=== PATIENT | female | born 1955 | race Caucasian/White ===

== ENCOUNTER 2019-10-12 15:46 | Emergency (ER) | payer MEDICAID ==
[2019-10-12] MEDS ORDERED: Adenosine 6 MG/2 ML SDV IVPUSH ONE (15:53)
[2019-10-12] MEDS ORDERED: Propofol 200 MG/20 ML SDV IVPUSH ONE (16:03)
--- NOTE | 2019-10-12 16:23 | EDM.PDOC ---
ED HPI GENERAL MEDICAL PROBLEM - General Chief Complaint: Cardiovascular Problem Stated Complaint: A-FIB Time Seen by Provider: 10/12/19 16:00 Source of Information: Reports: Patient, Family History Limitations: Reports: No Limitations - History of Present Illness INITIAL COMMENTS - FREE TEXT/NARRATIVE: 64-year-old female with a long history of recurring atrial fibrillation, SVT, and supraventricular arrhythmias who was undergone ablation twice, several medication trials including amiodarone, and currently she is only on one extended release metoprolol. She has an appointment coming up with her hadoop infrastructure architect next week because she has been having some breakthrough arrhythmias. No chest pain or significant shortness of breath, no illness or fevers. About 1 hour ago she started developing palpitations, her pulse was 150 to 160 and when it became close to 200 and she had slight chest pressure she thought she better come in. On arrival she was in a narrow complex tachyarrhythmia with a rate over 200. She was hypertensive with systolic near 220. O2 saturations were normal. She was very anxious, tearful Onset: Sudden Duration: Hour(s): (2 hours ago) Location: Reports: Chest (Slight chest pressure) Chest Pain Score (Numeric/FACES): 8 - Related Data Allergies Allergy/AdvReac Type Severity Reaction Status Date / Time No Known Allergies Allergy Verified 10/12/19 15:53 Home Meds: Home Meds Lisinopril 20 mg PO DAILY 05/21/16 [History] atorvaSTATin [Lipitor] 20 mg PO DAILY 05/21/16 [History] Cholecalciferol (Vitamin D3) [Vitamin D3] 5,000 unit PO DAILY 06/24/16 [History] Albuterol Sulfate [Proair Hfa] 1 puff INH ASDIRECTED 10/12/19 [History] Apixaban [Eliquis] 5 mg PO BID 10/12/19 [History] Furosemide 20 mg PO DAILY 10/12/19 [History] Melatonin 1 tab PO DAILY 10/12/19 [History] Metoprolol Succinate 50 mg PO DAILY 10/12/19 [History] Past Medical History Cardiovascular History: Reports: Afib, High Cholesterol, Hypertension Other Immunologic History: Lymes disease - Infectious Disease History Infectious Disease History: Reports: Chicken Pox, Measles - Past Surgical History GI Surgical History: Reports: Appendectomy Female Surgical History: Reports: Section, Tubal Ligation Social & Family History - Caffeine Use Caffeine Use: Reports: Soda ED ROS GENERAL - Review of Systems Review Of Systems: See Below Constitutional: Reports: Malaise. Denies: Fever, Chills HEENT: Reports: No Symptoms Respiratory: Reports: Shortness of Breath. Denies: Cough Cardiovascular: Reports: Chest Pain, Palpitations (Slight pressure) GI/Abdominal: Denies: Abdominal Pain, Nausea, Vomiting Skin: Reports: Diaphoresis Neurological: Reports: No Symptoms Psychiatric: Reports: Anxiety ED EXAM, GENERAL - Physical Exam Exam: See Below Exam Limited By: No Limitations General Appearance: Alert, Anxious, Mild Distress Respiratory/Chest: No Respiratory Distress, Lungs Clear Cardiovascular: Regular Rate, Rhythm, Tachycardia (Extreme tachycardia) GI/Abdominal: Non-Tender Extremities: No: Pedal Edema Neurological: Alert, Oriented Psychiatric: Anxious Skin Exam: Warm, Dry EKG INTERPRETATION EKG Date: 10/12/19 Rhythm: A-Fib Rate (Beats/Min): 196 QRS: Normal EKG Interpretation Comments: Initial EKG showed extreme narrow complex tachycardia, very regular with occasional PVCs. Either supraventricular tachycardia or very rapid and regular atrial fibrillation. Course - Vital Signs Last Recorded V/S: Last Vital Signs Temp 97.5 F 10/12/19 16:16 Pulse 123 H 10/12/19 16:38 Resp 31 H 10/12/19 16:16 BP 118/49 L 10/12/19 16:38 Pulse Ox 97 10/12/19 16:16 - Orders/Labs/Meds Labs: Laboratory Tests 10/12/19 10/12/19 Range/Units 16:16 16:16 WBC 9.4 (4.5-11.0) K/uL RBC 5.05 (3.30-5.50) M/uL Hgb 14.3 (12.0-15.0) g/dL Hct 44.5 (36.0-48.0) % MCV 88 (80-98) fL MCH 28 (27-31) pg MCHC 32 (32-36) % Plt Count 352 (150-400) K/uL Neut % (Auto) 52 (36-66) % Lymph % (Auto) 26 (24-44) % Kane % (Auto) 12 H (2-6) % Eos % (Auto) 9 H (2-4) % Baso % (Auto) 0 (0-1) % Sodium 136 L (140-148) mmol/L Potassium 4.0 (3.6-5.2) mmol/L Chloride 100 (100-108) mmol/L Carbon Dioxide 26 (21-32) mmol/L Anion Gap 14.0 (5.0-14.0) mmol/L BUN 16 (7-18) mg/dL Creatinine 0.9 (0.6-1.0) mg/dL Est Cr Clr Drug Dosing 59.12 mL/min Estimated GFR (MDRD) > 60 (>60) Glucose 136 H (74-106) mg/dL Calcium 9.6 (8.5-10.1) mg/dL Troponin I < 0.017 (0.000-0.056) ng/mL Meds: Medications Discontinued Medications Generic Name Dose Route Start Last Admin Trade Name Freq PRN Reason Stop Dose Admin Adenosine 6 mg 10/12/19 15:53 10/12/19 16:24 Adenocard IVPUSH 10/12/19 15:54 Not Given NOW ONE Metoprolol Tartrate 50 mg 10/12/19 16:32 10/12/19 16:38 Lopressor PO 10/12/19 16:33 50 mg ONETIME ONE Administration Propofol 120 mg 10/12/19 16:03 10/12/19 16:07 Diprivan 20 Ml IVPUSH 10/12/19 16:04 100 mg ONETIME ONE Administration - Re-Assessments/Exams Free Text/Narrative Re-Assessment/Exam: 10/12/19 16:30 An IV was started, IV adenosine or cardizem was considered but the patient has not eaten in 6 hours and she has not responded well in the past to medical treatments so she was prepared for cardioversion. After consent, 200 J of synchronized cardioversion was applied after 100 mg of IV propofol and proper sedation. She responded well and converted to a sinus tachycardia with occasional PVCs. Within 20 minutes she was awake, symptoms had resolved, her rate had fallen to 105 to 110 and her blood pressure normalized. A repeat EKG confirms sinus rhythm. 10/12/19 16:47 Patient was observed for an additional 30 minutes and remained in a sinus rhythm. Symptoms had resolved. I am encouraging her to take her metoprolol twice daily through the and recheck with cardiology on Tuesday as scheduled. Departure - Departure Time of Disposition: 17:10 Disposition: Home, Self-Care 01 Clinical Impression: Narrow complex tachycardia Instructions: Supraventricular Tachycardia, Adult, [id number] Referrals: Marleny Arias PA [Primary Care Provider] - Forms: ED Department Discharge Care Plan Goals: Take metoprolol twice daily through the weekend, and increase activity as tolerated. Return anytime if symptoms recur and are persistent. Recheck with your [employer]oop infrastructure architect on Tuesday as scheduled. Sepsis Event Note - Focused Exam Date Exam was Performed: 10/15/19 Time Exam was Performed: 10:42
[2019-10-12] MEDS ORDERED: Metoprolol Tartrate 50 MG Tab PO ONE (16:32)
[2019-10-12 16:39] VITALS: BP 118/49; PULSE 123
--- NOTE | 2019-10-12 16:57 | PCM.PRNOTE ---
- Free Text/Narrative Note: Date of service: 10/12/2019 Proposed procedure: Synchronized cardioversion Preprocedure diagnosis: Paroxysmal atrial fibrillation/flutter with rapid ventricular response Post procedure diagnosis: Paroxysmal atrial fibrillation/flutter with rapid ventricular response Indication for procedure: Adeola was evaluated today for management atrial fibrillation/flutter with symptoms and rapid ventricular response. Synchronized cardioversion was recommended as a primary treatment. Description of the procedure: Adeola is currently located [place] [id number]. We have reviewed the potential risks of electrical cardioversion including but not limited to: Superficial skin deal, ineffective treatment, other arrhythmias, reaction to anesthesia medications or potentially asystole. The benefits of the procedure have also been reviewed. At this time the patient wishes to proceed with electrical cardioversion. All necessary pre-procedure information and paperwork has been provided and completed, respectively. The patient was connected to cardioversion pads and monitoring equipment per protocol. Prior to the procedure, a timeout was held with nursing and anesthesia present to confirm the right patient and right procedure. Once appropriate anesthesia was applied the machine was charged to 200 Joules and a synchronized electrical shock was applied. The patient was successfully converted to normal sinus rhythm based on telemetry monitoring. They will remain in their current location until anesthesia has dissipated and the patient is more awake and alert. They will then be discharged to home once medically stable. There were no immediate complications noted from the procedure. Post procedure EKG is pending at the time of dictation. Polo Klein M.D.
== END 2019-10-12 17:10 | disposition home or self-care (01) ==
LOC: JP.ED 15:46
DX: R00.0 Tachycardia, unspecified (principal); I10 Essential (primary) hypertension; Z90.49 Acquired absence of other specified parts of digestive tract; Z79.899 Other long term (current) drug therapy
CPT/HCPCS: 36415; 80048; 84484; 85025; 92960; 93005; 99285; A9270; J2704

== ENCOUNTER 2019-10-26 21:03 | Emergency (ER) | payer MEDICAID ==
[2019-10-26] MEDS ORDERED: Diltiazem 25 MG/5 ML SDV IVPUSH ONE (21:17)
--- NOTE | 2019-10-26 21:36 | EDM.PDOC ---
ED HPI GENERAL MEDICAL PROBLEM - General Chief Complaint: Cardiovascular Problem Stated Complaint: A-FIB Time Seen by Provider: 10/26/19 21:20 Source of Information: Reports: Patient, Family History Limitations: Reports: No Limitations - History of Present Illness INITIAL COMMENTS - FREE TEXT/NARRATIVE: 64-year-old female with a long history of recurring atrial fibrillation, SVT, and atrial flutter was seen 3 weeks ago and cardioverted. Follow-up with her primary provider resulted in an increase in metoprolol to 150 mg daily and an echocardiogram scheduled for next week. 2 hours prior to coming into the emergency room she redeveloped palpitations after eating supper. Slight chest pressure which is typical when she gets atrial fibrillation. She arrived with a rate of 130. denies Pain Score (Numeric/FACES): 0 - Related Data Allergies Allergy/AdvReac Type Severity Reaction Status Date / Time No Known Allergies Allergy Verified 10/26/19 21:12 Home Meds: Home Meds Lisinopril 20 mg PO DAILY 05/21/16 [History] atorvaSTATin [Lipitor] 20 mg PO DAILY 05/21/16 [History] Cholecalciferol (Vitamin D3) [Vitamin D3] 5,000 unit PO DAILY 06/24/16 [History] Albuterol Sulfate [Proair Hfa] 1 puff INH ASDIRECTED 10/12/19 [History] Apixaban [Eliquis] 5 mg PO BID 10/12/19 [History] Furosemide 20 mg PO DAILY 10/12/19 [History] Melatonin 1 tab PO DAILY 10/12/19 [History] Metoprolol Succinate 75 mg PO BID 10/12/19 [History] Past Medical History Cardiovascular History: Reports: Afib, High Cholesterol, Hypertension Other Immunologic History: Lymes disease - Infectious Disease History Infectious Disease History: Reports: Chicken Pox, Measles - Past Surgical History GI Surgical History: Reports: Appendectomy Female Surgical History: Reports: Section, Tubal Ligation Social & Family History - Caffeine Use Caffeine Use: Reports: Soda ED ROS GENERAL - Review of Systems Review Of Systems: See Below Constitutional: Denies: Fever, Chills HEENT: Reports: No Symptoms Respiratory: Denies: Shortness of Breath Cardiovascular: Reports: Other (Slight epigastric pressure intermittent). Denies: Chest Pain GI/Abdominal: Denies: Nausea, Vomiting Skin: Reports: No Symptoms Neurological: Denies: Headache ED EXAM, GENERAL - Physical Exam Exam: See Below Exam Limited By: No Limitations General Appearance: Alert, No Apparent Distress Head: Atraumatic Respiratory/Chest: No Respiratory Distress, Lungs Clear Cardiovascular: Tachycardia, Irregularly Irregular GI/Abdominal: Soft, Non-Tender Extremities: No: Pedal Edema Neurological: Alert, Oriented Psychiatric: Normal Affect, Normal Mood EKG INTERPRETATION EKG Date: 10/26/19 Rhythm: A-Fib Rate (Beats/Min): 126 Course - Vital Signs Last Recorded V/S: Last Vital Signs Temp 96.9 F 10/26/19 21:42 Pulse 109 H 10/26/19 23:20 Resp 29 H 10/26/19 22:10 BP 93/46 L 10/26/19 23:20 Pulse Ox 95 10/26/19 22:10 - Orders/Labs/Meds Meds: Medications Discontinued Medications Generic Name Dose Route Start Last Admin Trade Name Tyrelq PRN Reason Stop Dose Admin Diltiazem HCl 25 mg 10/26/19 21:17 10/26/19 21:28 Diltiazem IVPUSH 10/26/19 21:18 25 mg ONETIME ONE Administration Metoprolol Tartrate 5 mg 10/26/19 22:45 10/26/19 22:53 Lopressor IVPUSH 10/26/19 22:46 5 mg ONETIME ONE Administration Metoprolol Tartrate 75 mg 10/26/19 23:12 10/26/19 23:20 Lopressor PO 10/26/19 23:13 75 mg NOW STA Administration Propofol Confirm 10/26/19 22:58 Diprivan 20 Ml Administered 10/26/19 22:59 Dose 200 mg .ROUTE .[facility] - Re-Assessments/Exams Free Text/Narrative Re-Assessment/Exam: 10/26/19 22:01 Patient had significant rate control with Cardizem but did not spontaneously convert. She will be prepared for elective cardioversion using propofol. 10/26/19 23:17 After consent, propofol sedation was given and the patient cardioverted with 200 J of synchronized cardioversion. She did convert to sinus rhythm, but then re-established atrial fib flutter pattern. This was monitored for the next 10 to 15 minutes and she kept flipping back and forth from normal to abnormal rhythms. She was then given 5 mg of IV Lopressor which controlled her rate around 100 but continued to be in atrial fibrillation. She was then given her 75 mg p.o. dose of metoprolol. She will be discharged and recheck tomorrow morning if still symptomatic, or return sooner if worsening such as uncontrolled rate or chest pain or shortness of breath. Departure - Departure Time of Disposition: 23:35 Disposition: Home, Self-Care 01 Clinical Impression: Atrial fibrillation and flutter Instructions: Atrial Fibrillation, [id number] Referrals: Marleny Arias PA [Primary Care Provider] - Forms: ED Department Discharge Care Plan Goals: Continue current medications, return tomorrow morning if still symptomatic. Return sooner if worsening such as chest pain, shortness of breath, or not tolerating the palpitations. Sepsis Event Note - Focused Exam Vital Signs: Vital Signs Temp Pulse Pulse Resp BP BP Pulse Ox 10/26/19 23:20 109 H 93/46 L 10/26/19 22:53 152 H 95/50 L 10/26/19 22:10 85 29 H 124/57 L 95 10/26/19 21:42 96.9 F 126 H 17 94/73 93 L 10/26/19 21:40 87 15 134/47 L 94 L 10/26/19 21:30 131 H 13 116/47 L 94 L 10/26/19 21:17 96.9 F 126 H 17 94/73 93 L Date Exam was Performed: 10/26/19 Time Exam was Performed: 23:39
[2019-10-26] MEDS ORDERED: Metoprolol Tartrate 5 MG/5 ML SDV IVPUSH ONE (22:45)
[2019-10-26] MEDS ORDERED: Propofol 200 MG/20 ML SDV ONE (22:58)
[2019-10-26] MEDS ORDERED: Metoprolol Tartrate 25 MG Tab PO STA (23:12)
[2019-10-27 00:42] VITALS: BP 110/74; PULSE 116
== END 2019-10-26 23:35 | disposition home or self-care (01) ==
LOC: JP.ED 21:03
DX: I48.91 Unspecified atrial fibrillation (principal); I10 Essential (primary) hypertension; E78.00 Pure hypercholesterolemia, unspecified; Z79.899 Other long term (current) drug therapy
CPT/HCPCS: 92960; 96374; 96375; 99284; A9270; J2704; J3490; 93005

== ENCOUNTER 2021-07-23 12:17 | Emergency (ER) | payer MEDICARE, BC ==
[2021-07-23 12:34] VITALS: BP 154/84
[2021-07-23] MEDS ORDERED: Sodium Chloride 0.9% 10 ML Syringe FLUSH PRN (12:40)
[2021-07-23] MEDS ORDERED: Metoprolol Tartrate 5 MG/5 ML SDV IVPUSH ONE (12:41)
--- NOTE | 2021-07-23 12:44 | EDM.PDOC ---
ED HPI GENERAL MEDICAL PROBLEM - General Chief Complaint: Chest Pain Stated Complaint: A-FIB Time Seen by Provider: 07/23/21 12:40 Source of Information: Reports: Patient, Old Records, RN History Limitations: Reports: No Limitations - History of Present Illness INITIAL COMMENTS - FREE TEXT/NARRATIVE: 66 yo female is here with a rapid HR that began about 10:30 AM today. She has some mild anterior chest tightness associated with her sx's. No nausea, SOB or diaphoresis. Has a pHx of afib, but had an ablation for this after which her metoprolol was stopped. Does remain in the Eliquis. Took all of her morning meds today. Onset: Today, Sudden Onset Date: 07/23/21 Onset Time: 10:30 Duration: Hour(s): (2), Constant Location: Reports: Chest Quality: Reports: Pressure Severity: Mild Improves with: Reports: None Worsens with: Reports: None Context: Reports: Other (see HPI) Associated Symptoms: Reports: Chest Pain. Denies: Diaphoresis, Nausea/Vomiting, Shortness of Breath Treatments [employer]SEM[employer] LE[employer]ER: Reports: Other (see below) (none) Chest Pain Score (Numeric/FACES): 6 - Related Data Allergies Allergy/AdvReac Type Severity Reaction Status Date / Time amiodarone Allergy Shortness Verified 07/23/21 12:41 of Breath Home Meds: Home Meds Lisinopril 20 mg PO DAILY 05/21/16 [History] atorvaSTATin [Lipitor] 20 mg PO DAILY 05/21/16 [History] Cholecalciferol (Vitamin D3) [Vitamin D3] 5,000 unit PO DAILY 06/24/16 [History] Albuterol Sulfate [Proair Hfa] 1 puff INH ASDIRECTED 10/12/19 [History] Apixaban [Eliquis] 5 mg PO BID 10/12/19 [History] Furosemide 20 mg PO DAILY 10/12/19 [History] Melatonin 1 tab PO DAILY 10/12/19 [History] Famotidine 20 mg PO DAILY 07/23/21 [History] Past Medical History Cardiovascular History: Reports: Afib, High Cholesterol, Hypertension Other Immunologic History: Lymes disease - Infectious Disease History Infectious Disease History: Reports: Chicken Pox, Measles - Past Surgical History GI Surgical History: Reports: Appendectomy Female Surgical History: Reports: Section, Tubal Ligation Social & Family History - Caffeine Use Caffeine Use: Reports: Soda ED ROS GENERAL - Review of Systems Review Of Systems: See Below Constitutional: Reports: No Symptoms HEENT: Reports: No Symptoms Respiratory: Denies: Shortness of Breath, Pleuritic Chest Pain Cardiovascular: Reports: Chest Pain. Denies: Dyspnea on Exertion Endocrine: Reports: No Symptoms GI/Abdominal: Reports: No Symptoms. Denies: Nausea : Reports: No Symptoms Musculoskeletal: Reports: No Symptoms Skin: Reports: No Symptoms. Denies: Diaphoresis Neurological: Reports: No Symptoms Psychiatric: Reports: No Symptoms ED EXAM, GENERAL - Physical Exam Exam: See Below Exam Limited By: No Limitations General Appearance: Alert, WD/WN, No Apparent Distress, Obese Eye Exam: Bilateral Eye: Normal Inspection Ears: Normal External Exam, Normal Canal, Hearing Grossly Normal Ear Exam: Bilateral Ear: Auricle Normal, Canal Normal Nose: Normal Inspection, No Blood Throat/Mouth: Normal Inspection, Normal Lips, Normal Oropharynx, Normal Voice, No Airway Compromise Head: Atraumatic, Normocephalic Neck: Normal Inspection Respiratory/Chest: No Respiratory Distress, Lungs Clear, Normal Breath Sounds, No Accessory Muscle Use. No: Respiratory Distress GI/Abdominal: Soft, Non-Tender Extremities: Normal Inspection, Non-Tender, No Pedal Edema. No: Piotr's Sign Neurological: Alert, Oriented, CN II-XII Intact, Normal Cognition, No Motor/Sensory Deficits Psychiatric: Normal Affect, Normal Mood Skin Exam: Warm, Dry, Intact, Normal Color, No Rash #1 Interpretation EKG Date: 07/23/21 Time: 12:20 Rhythm: A-Fib Rate (Beats/Min): 158 [place]: Normal P-Wave: Absent QRS: Normal ST-T: Normal QT: Normal Comparison: No Change Course - Vital Signs Last Recorded V/S: Last Vital Signs Temp 36.2 C 07/23/21 12:39 Pulse 155 H 07/23/21 12:49 Resp 21 H 07/23/21 12:39 BP 154/84 H 07/23/21 12:49 Pulse Ox 96 07/23/21 12:39 - Orders/Labs/Meds Orders: Active Orders 24 hr Category Date Time Status Cardiac Monitoring [RC] .As Directed Care 07/23/21 12:41 Active Sodium Chloride 0.9% [Normal Saline] 1,000 ml Med 07/23/21 14:01 Active IV .BOLUS Sodium Chloride 0.9% [Saline Flush] Med 07/23/21 12:40 Active 10 ml FLUSH ASDIRECTED PRN Saline Lock Insert [OM.PC] Routine Oth 07/23/21 12:40 Ordered EKG 12 Lead [EK] Routine Ther 07/23/21 12:41 Ordered Medication Orders Sodium Chloride (Normal Saline) 1,000 mls @ 1,000 mls/hr IV .BOLUS ONE Stop: 07/23/21 15:00 Sodium Chloride (Sodium Chloride 0.9% 10 Ml Syringe) 10 ml FLUSH ASDIRECTED PRN PRN Reason: Keep Vein Open Last Admin: 07/23/21 12:50 Dose: 10 ml Documented by: JUNE Labs: Laboratory Tests 07/23/21 Range/Units 13:39 Troponin I < 0.017 (0.000-0.056) ng/mL Meds: Medications Generic Name Dose Route Start Last Admin Trade Name Freq PRN Reason Stop Dose Admin Sodium Chloride 1,000 mls @ 1,000 mls/hr 07/23/21 14:01 Normal Saline IV 07/23/21 15:00 .BOLUS ONE Sodium Chloride 10 ml 07/23/21 12:40 07/23/21 12:50 Sodium Chloride 0.9% 10 Ml Syringe FLUSH 10 ml ASDIRECTED PRN Administration Keep Vein Open Discontinued Medications Generic Name Dose Route Start Last Admin Trade Name Freq PRN Reason Stop Dose Admin Metoprolol Tartrate 5 mg 07/23/21 12:41 07/23/21 12:49 Metoprolol Tartrate 5 Mg/5 Ml Sdv IVPUSH 07/23/21 12:42 5 mg ONETIME ONE Administration Midazolam HCl 5 mg 07/23/21 13:23 Midazolam 1 Mg/Ml 5 Ml Sdv IVPUSH 07/23/21 13:24 ONETIME ONE Propofol Confirm 07/23/21 13:30 Propofol 200 Mg/20 Ml Sdv Administered 07/23/21 13:31 Dose 400 mg .ROUTE .[facility] - Re-Assessments/Exams Free Text/Narrative Re-Assessment/Exam: 07/23/21 13:12 Rate slowed to 120's after metoprolol. Appears more irregular now. Will cardiovert. Free Text/Narrative Re-Assessment/Exam: 07/23/21 13:40 Cardioverted successfully with anesthesia here using Propofol and 200 J sync. Departure - Departure Time of Disposition: 14:35 Disposition: Home, Self-Care 01 Condition: Fair Clinical Impression: Atrial fibrillation with RVR, Encounter for cardioversion procedure Referrals: Francisco Byrd MD [Primary Care Provider] - Forms: ED Department Discharge Additional Instructions: Continue your current medications. Stay in touch with your retail client solutions consultant regarding your situation. Return as needed. Sepsis Event Note (ED) - Evaluation Sepsis Screening Result: No Definite Risk - Focused Exam Vital Signs: Vital Signs Temp Pulse Pulse Resp BP BP Pulse Ox 07/23/21 12:49 155 H 154/84 H 07/23/21 12:39 36.2 C 158 H 21 H 154/84 H 96 07/23/21 12:32 36.2 C 158 H 21 H 154/84 H 96 - My Orders Last 24 Hours: My Active Orders 07/23/21 12:40 Sodium Chloride 0.9% [Saline Flush] 10 ml FLUSH ASDIRECTED PRN Saline Lock Insert [OM.PC] Routine 07/23/21 12:41 Cardiac Monitoring [RC] .As Directed EKG 12 Lead [EK] Routine 07/23/21 14:01 Sodium Chloride 0.9% [Normal Saline] 1,000 ml IV .BOLUS - Assessment/Plan Last 24 Hours: My Active Orders 07/23/21 12:40 Sodium Chloride 0.9% [Saline Flush] 10 ml FLUSH ASDIRECTED PRN Saline Lock Insert [OM.PC] Routine 07/23/21 12:41 Cardiac Monitoring [RC] .As Directed EKG 12 Lead [EK] Routine 07/23/21 14:01 Sodium Chloride 0.9% [Normal Saline] 1,000 ml IV .BOLUS
[2021-07-23 12:50] VITALS: PULSE 155
[2021-07-23] MEDS ORDERED: Midazolam 1 MG/ML 5 ML SDV IVPUSH ONE (13:23)
[2021-07-23] MEDS ORDERED: Propofol 200 MG/20 ML SDV ONE (13:30)
[2021-07-23] MEDS ORDERED: Sodium Chloride 0.9% 1,000 ML IV ONE (14:01)
== END 2021-07-23 15:00 | disposition home or self-care (01) ==
LOC: JP.ED 12:17
DX: I48.91 Unspecified atrial fibrillation (principal); E78.00 Pure hypercholesterolemia, unspecified; I10 Essential (primary) hypertension; Z79.01 Long term (current) use of anticoagulants; Z79.899 Other long term (current) drug therapy; Z88.8 Allergy status to other drugs, medicaments and biological substances
CPT/HCPCS: 36415; 84484; 92960; 93005; 96374; 99285; J2704; J3490; J7030

== ENCOUNTER 2021-07-26 21:00 | Emergency (ER) | payer MEDICARE, BC ==
[2021-07-26] MEDS ORDERED: Propofol 200 MG/20 ML SDV IVPUSH ONE (21:23)
[2021-07-26] MEDS ORDERED: Metoprolol Tartrate 25 MG Tab PO ONE (22:12)
--- NOTE | 2021-07-26 22:12 | EDM.PDOC ---
ED HPI GENERAL MEDICAL PROBLEM - General Chief Complaint: Cardiovascular Problem Stated Complaint: AFIB Time Seen by Provider: 07/26/21 21:30 Source of Information: Reports: Patient, Family History Limitations: Reports: No Limitations - History of Present Illness INITIAL COMMENTS - FREE TEXT/NARRATIVE: 66-year-old female who has had problems with recurring atrial fibrillation over several years, has had ablation twice and now has had 2 episodes of atrial fibrillation in the last week. She is anticoagulated with Eliquis. Tonight about 1 hour prior to coming in, she redeveloped palpitations and rapid heart rate. Onset: Sudden Duration: Hour(s): (Symptoms started 2 hours ago) Improves with: Reports: None Worsens with: Reports: Movement (Activity causes increased heart rate) Associated Symptoms: Reports: Other (Mild chest pressure and shortness of breath which is typical for her atrial fibrillation) - Related Data Allergies Allergy/AdvReac Type Severity Reaction Status Date / Time amiodarone Allergy Shortness Verified 07/26/21 21:13 of Breath Home Meds: Home Meds Lisinopril 20 mg PO DAILY 05/21/16 [History] atorvaSTATin [Lipitor] 20 mg PO DAILY 05/21/16 [History] Cholecalciferol (Vitamin D3) [Vitamin D3] 5,000 unit PO DAILY 06/24/16 [History] Albuterol Sulfate [Proair Hfa] 1 puff INH ASDIRECTED 10/12/19 [History] Apixaban [Eliquis] 5 mg PO BID 10/12/19 [History] Furosemide 20 mg PO DAILY 10/12/19 [History] Melatonin 1 tab PO DAILY 10/12/19 [History] Famotidine 20 mg PO DAILY 07/23/21 [History] Past Medical History Cardiovascular History: Reports: Afib, High Cholesterol, Hypertension Other Immunologic History: Lymes disease - Infectious Disease History Infectious Disease History: Reports: Chicken Pox, Measles - Past Surgical History Cardiovascular Surgical History: Reports: Cardiac Ablation Other Cardiovascular Surgeries/Procedures: cardioversion may 22 2016. cardiac ablation jun 16 GI Surgical History: Reports: Appendectomy Female Surgical History: Reports: Section, Tubal Ligation Social & Family History - Family History Family Medical History: No Pertinent Family History - Tobacco Use Tobacco Use Status *Q: Never Tobacco User - Caffeine Use Caffeine Use: Reports: None - Recreational Drug Use Recreational Drug Use: No ED ROS GENERAL - Review of Systems Review Of Systems: See Below Constitutional: Reports: Malaise. Denies: Fever, Chills HEENT: Reports: No Symptoms Respiratory: Reports: Shortness of Breath Cardiovascular: Reports: Palpitations, Other (Mild chest pressure) GI/Abdominal: Reports: No Symptoms. Denies: Nausea, Vomiting : Reports: No Symptoms Skin: Reports: No Symptoms Neurological: Reports: No Symptoms. Denies: Dizziness, Headache Psychiatric: Reports: No Symptoms ED EXAM, GENERAL - Physical Exam Exam: See Below Exam Limited By: No Limitations General Appearance: Alert, No Apparent Distress Eye Exam: Bilateral Eye: Normal Inspection Head: Atraumatic Respiratory/Chest: No Respiratory Distress, Lungs Clear Cardiovascular: Tachycardia, Irregularly Irregular GI/Abdominal: Soft, Non-Tender Extremities: Other (Trace of symmetric ankle edema) Neurological: Alert, Oriented, No Motor/Sensory Deficits Psychiatric: Normal Affect, Normal Mood Skin Exam: Warm, Dry #1 Interpretation EKG Date: 07/26/21 Rhythm: A-Fib Rate (Beats/Min): 154 ST-T: Normal Course - Vital Signs Last Recorded V/S: Last Vital Signs Temp 95.1 F L 07/26/21 21:22 Pulse 99 07/26/21 22:18 Resp 27 H 07/26/21 21:22 BP 114/82 07/26/21 22:18 Pulse Ox 96 07/26/21 21:22 - Orders/Labs/Meds Orders: Active Orders 24 hr Category Date Time Status EKG 12 Lead [EK] Routine Ther 07/26/21 21:26 Ordered Meds: Medications Discontinued Medications Generic Name Dose Route Start Last Admin Trade Name Katy PRN Reason Stop Dose Admin Metoprolol Tartrate 25 mg 07/26/21 22:12 07/26/21 22:18 Metoprolol Tartrate 25 Mg Tab PO 07/26/21 22:13 25 mg ONETIME ONE Administration Propofol 200 mg 07/26/21 21:23 07/26/21 21:38 Propofol 200 Mg/20 Ml Sdv IVPUSH 07/26/21 21:24 200 mg ONETIME ONE Administration - Re-Assessments/Exams Free Text/Narrative Re-Assessment/Exam: 07/27/21 00:40 Patient was placed on cardiac monitoring and an EKG was done which confirmed atrial fibrillation with RVR. After informed consent the patient agreed for elective cardioversion. IV was started and propofol sedation was attempted in the left arm but it infiltrated into the soft tissue so this was aborted and a new IV started in the right arm. Informed consent for the cardioversion was obtained and the patient was then given propofol. 110 mg was given and appropriate sedation was achieved, patient cardioverted with 200 J of synchronized electricity. This did convert her to sinus rhythm with frequent PACs. She recovered nicely from the anesthesia, she was under significant sedation for 16 minutes. After the patient recovered and returned to baseline mental status, she was given 25 mg of oral metoprolol and will discuss with her primary cardiology physician tomorrow with a she can continue on her rate suppression medication or what other evaluation is needed. Departure - Departure Time of Disposition: 22:47 Disposition: Home, Self-Care 01 Clinical Impression: Atrial fibrillation with RVR Instructions: Atrial Fibrillation, [id number] Referrals: Marleny Arias PA [Primary Care Provider] - Forms: ED Department Discharge Care Plan Goals: Call your cras tomorrow to update him on what has happened over the past week. We gave you 25 mg of oral metoprolol tonight, continuing this medication may help you in the future and you can discuss this with your cras. Return anytime if symptoms recur especially if short of breath or chest pain. Sepsis Event Note (ED) - Evaluation Sepsis Screening Result: No Definite Risk - Focused Exam Vital Signs: Vital Signs Temp Pulse Pulse Resp BP BP Pulse Ox 07/26/21 22:18 99 114/82 07/26/21 21:22 95.1 F L 134 H 27 H 145/85 H 96 07/26/21 21:15 95.1 F L 137 H 30 H 145/85 H 96 - My Orders Last 24 Hours: My Active Orders 07/26/21 21:26 EKG 12 Lead [EK] Routine - Assessment/Plan Last 24 Hours: My Active Orders 07/26/21 21:26 EKG 12 Lead [EK] Routine
[2021-07-26 22:19] VITALS: BP 114/82; PULSE 99
== END 2021-07-26 22:48 | disposition home or self-care (01) ==
LOC: JP.ED 21:00
DX: I48.91 Unspecified atrial fibrillation (principal); E78.00 Pure hypercholesterolemia, unspecified; I10 Essential (primary) hypertension; Z79.01 Long term (current) use of anticoagulants; Z79.899 Other long term (current) drug therapy; Z88.6 Allergy status to analgesic agent
CPT/HCPCS: 92960; 93005; 99152; 99284; A9270; J2704

== ENCOUNTER 2021-07-28 20:00 | Emergency (ER) | payer MEDICARE, BC | END 2021-07-28 20:55 | disposition left against medical advice (07) | LOC: JP.ED 20:00 | DX: Z53.21 Procedure and treatment not carried out due to patient leaving prior to being seen by health care provider (principal) ==

== ENCOUNTER 2021-12-28 10:40 | Emergency (ER) | payer MEDICARE, BC ==
[2021-12-28 10:59] VITALS: PULSE 144
[2021-12-28] MEDS ORDERED: Sodium Chloride 0.9% 10 ML Syringe FLUSH PRN (11:04)
[2021-12-28] MEDS ORDERED: Diltiazem 25 MG/5 ML SDV IVPUSH ONE (11:04)
[2021-12-28] MEDS ORDERED: Diltiazem 100 MG in Sodium Chloride 0.9% 100 ML IV SCH (11:15)
[2021-12-28] MEDS ORDERED: Sodium Chloride 0.9% 1,000 ML IV SCH (11:15)
[2021-12-28 12:11] VITALS: BP 124/84
[2021-12-28] MEDS ORDERED: Propofol 200 MG/20 ML SDV ONE (12:54)
== END 2021-12-28 13:38 | disposition home or self-care (01) ==
LOC: JP.ED 10:40
DX: I48.91 Unspecified atrial fibrillation (principal); E78.00 Pure hypercholesterolemia, unspecified; I10 Essential (primary) hypertension; Z88.8 Allergy status to other drugs, medicaments and biological substances; Z79.899 Other long term (current) drug therapy; Z79.01 Long term (current) use of anticoagulants
CPT/HCPCS: 36415; 80053; 84484; 85025; 92960; 93005; 93010; 96365; 96366; 99283; 99285-25; J2704; J3490; J7030

== ENCOUNTER 2022-01-05 17:59 | Emergency (ER) | payer MEDICARE, BC ==
[2022-01-05] MEDS ORDERED: Sodium Chloride 0.9% 10 ML Syringe FLUSH PRN (18:31)
[2022-01-05 19:30] LABS: CORONAVIRUS COVID-19 NAA NEGATIVE (NEGATIVE)
[2022-01-06] MEDS ORDERED: Aspirin 81 MG Tab.Chew PO ONE (00:52)
[2022-01-06 01:40] VITALS: BP 128/57; PULSE 74
== END 2022-01-06 01:49 ==
LOC: JP.ED 17:59
DX: I24.9 Acute ischemic heart disease, unspecified (principal); I48.0 Paroxysmal atrial fibrillation; I10 Essential (primary) hypertension; E78.5 Hyperlipidemia, unspecified; E78.00 Pure hypercholesterolemia, unspecified; Z79.899 Other long term (current) drug therapy; Z20.822 Contact with and (suspected) exposure to COVID-19
CPT/HCPCS: 0241U; 36415; 80048; 80076; 84484; 85025; 93005; 93010; 99283; 99285-25; A9270-GY

== ENCOUNTER 2023-03-23 11:28 | Emergency (ER) | payer MEDICARE, BC ==
[2023-03-23] MEDS ORDERED: Sodium Chloride 0.9% 10 ML Syringe FLUSH PRN (11:31)
[2023-03-23 11:58] LABS: BASOPHILS ABSOLUTE AUTO 0.05 K/uL (0.00-0.10); BASOPHILS PERCENT AUTO 0.6 % (0.1-1.3); EOSINOPHILS ABSOLUTE AUTO 0.48 K/uL (0.00-0.40); EOSINOPHILS PERCENT AUTO 5.3 % (0.0-5.4); HEMATOCRIT 45.1 % (34.3-46.0); IMMATURE GRAN ABSOLUTE AUTO 0.04 K/uL (0.00-0.23); IMMATURE GRAN PERCENT AUTO 0.4 % (0.0-0.7); LYMPHOCYTES ABSOLUTE AUTO 2.12 K/uL (0.8-3.3); LYMPHOCYTES PERCENT AUTO 23.5 % (11.4-47.7); MEAN CORPUSCULAR HEMOGLOBIN 29.8 pg (31.6-35.5); MEAN CORPUSCULAR HGB CONC 33.3 g/dL (31.6-35.5); MEAN CORPUSCULAR VOLUME 89.5 fL (81.4-99.0); MONOCYTES ABSOLUTE AUTO 0.78 K/uL (0.20-0.90); MONOCYTES PERCENT AUTO 8.6 % (3.3-12.6); NEUTROPHILS ABSOLUTE AUTO 5.56 K/uL (1.0-7.6); NEUTROPHILS PERCENT AUTO 61.6 % (40.0-78.1); PLATELET COUNT,PLT 270 K/uL (130-375); RED BLOOD CELL COUNT 5.04 M/uL (3.77-5.24)
[2023-03-23 12:17] LABS: PROTHROMBIN TIME 10.1 sec (9.2-10.6); PTT,PARTIAL THROMBOPLSTIN TIME 26.1 sec (21.8-27.3)
[2023-03-23 12:20] LABS: ANION GAP 7.9 mmol/L (5.0-14.0); CALCIUM 9.6 mg/dL (8.5-10.1); CREATININE 0.8 mg/dL (0.6-1.0); EST CRCL DRUG DOSING (CG) 60.56 mL/min; MAGNESIUM 2.1 mg/dL (1.8-2.4); POTASSIUM,K 4.1 mmol/L (3.6-5.2); TROPONIN I HIGH SENSITIVITY 12.9 pg/mL (<=60.3)
[2023-03-23] MEDS ORDERED: Propofol 200 MG/20 ML SDV ONE (13:00)
[2023-03-23 14:31] VITALS: BP 117/51; PULSE 80
== END 2023-03-23 14:47 | disposition home or self-care (01) ==
LOC: JP.ED 11:28
DX: R07.89 Other chest pain (principal); I48.92 Unspecified atrial flutter; I11.0 Hypertensive heart disease with heart failure; I50.22 Chronic systolic (congestive) heart failure; I48.91 Unspecified atrial fibrillation; E78.00 Pure hypercholesterolemia, unspecified; E66.01 Morbid (severe) obesity due to excess calories; Z68.41 Body mass index [BMI] 40.0-44.9, adult; Z88.8 Allergy status to other drugs, medicaments and biological substances; Z79.899 Other long term (current) drug therapy
CPT/HCPCS: 36415; 80048; 83735; 84484; 85025; 85610; 85730; 92960; 93005; 99285; J2704

== ENCOUNTER 2023-10-06 08:52 | Emergency (ER) | payer MEDICARE, BC ==
[2023-10-06 09:35] LABS: INR 2.3; PROTHROMBIN TIME 21.8 sec (9.2-10.6)
[2023-10-06] MEDS ORDERED: Metoprolol Tartrate 50 MG Tab PO ONE (09:39)
[2023-10-06] MEDS ORDERED: Amiodarone 200 MG Tab PO ONE (09:39)
[2023-10-06 10:10] VITALS: BP 143/74; PULSE 88
== END 2023-10-06 10:15 | disposition home or self-care (01) ==
LOC: JP.ED 08:52
DX: I48.91 Unspecified atrial fibrillation (principal); I10 Essential (primary) hypertension; E78.00 Pure hypercholesterolemia, unspecified; Z79.899 Other long term (current) drug therapy; Z98.890 Other specified postprocedural states
CPT/HCPCS: 36415; 85610; 93005; 99285; A9270

== ENCOUNTER 2023-11-05 06:57 | Inpatient (IN) | payer MEDICARE, BC ==
[2023-11-05 07:43] LABS: BASOPHILS ABSOLUTE AUTO 0.05 K/uL (0.00-0.10); BASOPHILS PERCENT AUTO 0.9 % (0.1-1.3); EOSINOPHILS ABSOLUTE AUTO 0.24 K/uL (0.00-0.40); EOSINOPHILS PERCENT AUTO 4.4 % (0.0-5.4); HEMATOCRIT 39.9 % (34.3-46.0); HEMOGLOBIN 12.7 g/dL (11.2-15.5); IMMATURE GRAN PERCENT AUTO 0.4 % (0.0-0.7); LYMPHOCYTES ABSOLUTE AUTO 1.02 K/uL (0.8-3.3); LYMPHOCYTES PERCENT AUTO 18.5 % (11.4-47.7); MEAN CORPUSCULAR HEMOGLOBIN 27.3 pg (31.6-35.5); MEAN CORPUSCULAR HGB CONC 31.8 g/dL (31.6-35.5); MEAN CORPUSCULAR VOLUME 85.8 fL (81.4-99.0); MONOCYTES ABSOLUTE AUTO 0.74 K/uL (0.20-0.90); MONOCYTES PERCENT AUTO 13.4 % (3.3-12.6); NEUTROPHILS ABSOLUTE AUTO 3.44 K/uL (1.0-7.6); NEUTROPHILS PERCENT AUTO 62.4 % (40.0-78.1); PLATELET COUNT,PLT 235 K/uL (130-375); RED BLOOD CELL COUNT 4.65 M/uL (3.77-5.24); WHITE BLOOD CELL COUNT,WBC 5.5 K/uL (3.2-11.0)
[2023-11-05 07:59] LABS: INR 1.6; PROTHROMBIN TIME 15.5 sec (9.2-10.6)
[2023-11-05 08:10] LABS: IMMATURE GRAN ABSOLUTE AUTO 0.02 K/uL (0.00-0.23)
[2023-11-05 08:13] LABS: A/G RATIO 0.7 (1.2-2.2); ALANINE AMINOTRANSFERASE,ALT 23 U/L (12-78); ALBUMIN 3.2 g/dL (3.4-5.0); ALKALINE PHOSPHATASE 93 U/L (46-116); ASPARTATE AMNIOTRANSFERASE,AST 36 U/L (15-37); BILIRUBIN TOTAL 0.5 mg/dL (0.2-1.0); BLOOD UREA NITROGEN,BUN 16 mg/dL (7-18); CALCIUM 8.7 mg/dL (8.5-10.1); CARBON DIOXIDE,CO2 29 mmol/L (21-32); CHLORIDE,CL 98 mmol/L (100-108); CREATININE 1.1 mg/dL (0.6-1.0); EST CRCL DRUG DOSING (CG) 44.05 mL/min; ESTIMATED GFR 55 mL/min (>60); GLUCOSE RANDOM 125 mg/dL (74-106); POTASSIUM,K 3.7 mmol/L (3.6-5.2); SODIUM,NA 133 mmol/L (140-148)
[2023-11-05 08:14] LABS: CORONAVIRUS COVID-19 NAA NEGATIVE (NEGATIVE); INFLUENZA A NAA NEGATIVE (NEGATIVE); INFLUENZA B NAA NEGATIVE (NEGATIVE); RESPIRATORY SYNCYTIAL VIR NAA POSITIVE (NEGATIVE)
[2023-11-05] MEDS ORDERED: Albuterol 0.083% 2.5 MG/3 ML Neb Soln NEB ONE ×2 (08:22→11:03)
[2023-11-05 08:27] LABS: ANION GAP 9.7 mmol/L (5.0-14.0)
[2023-11-05 08:46] LABS: APPEARANCE,URINE CLEAR (CLEAR); BILIRUBIN,URINE NEGATIVE (NEGATIVE); COLOR,URINE YELLOW (YELLOW); GLUCOSE,URINE NEGATIVE (NEGATIVE); KETONES,URINE NEGATIVE (NEGATIVE); LEUKOCYTE ESTERASE,URINE NEGATIVE (NEGATIVE); NITRITE,URINE NEGATIVE (NEGATIVE); OCCULT BLOOD,URINE NEGATIVE (NEGATIVE); PROTEIN,URINE 100 mg/dL (NEGATIVE); UROBILINOGEN,URINE 0.2 EU/dL (0.2-1.0)
[2023-11-05 08:51] LABS: AMORPHOUS SEDIMENT,URINE NOT SEEN; BACTERIA,URINE RARE; EPITHELIAL CELLS,URINE MODERATE; MUCUS,URINE MANY; RBC,URINE NOT SEEN (0-5); WBC,URINE 0-5 (0-5)
[2023-11-05] MEDS ORDERED: Acetaminophen 325 MG Tab PO PRN (13:55)
[2023-11-05] MEDS ORDERED: Ondansetron 4 MG/2 ML SDV IV PRN (13:55)
[2023-11-05] MEDS ORDERED: guaiFENesin/Dextromethorphan 100-10 MG/5 ML Soln 10 ML Cup PO PRN (13:55)
[2023-11-05] MEDS ORDERED: Magnesium Hydroxide 400 MG/5 ML Susp 30 ML Cup PO PRN (13:55)
[2023-11-05] MEDS ORDERED: Sennosides/Docusate Sodium 50-8.6 MG Tab PO PRN (13:55)
[2023-11-05] MEDS ORDERED: Ondansetron 4 MG Tab.DIS PO PRN (13:55)
[2023-11-05] MEDS ORDERED: Melatonin 3 MG Tab PO PRN (13:55)
[2023-11-05] MEDS ORDERED: Albuterol 0.083% 2.5 MG/3 ML Neb Soln NEB PRN (13:55)
[2023-11-05] MEDS: Albuterol 0.083% 2.5 MG/3 ML Neb Soln NEB SCH ×2 (14:28→20:28)
[2023-11-05] MEDS: Furosemide 40 MG Tab PO SCH (14:55)
[2023-11-05] MEDS ORDERED: predniSONE 20 MG Tab PO ONE (15:00)
[2023-11-05] MEDS: Amiodarone 200 MG Tab PO SCH (20:30)
[2023-11-05] MEDS: Pantoprazole 40 MG Tab.CR PO SCH (20:30)
[2023-11-05] MEDS: Metoprolol Succinate 50 MG Tab.ER PO SCH (20:30)
[2023-11-05] MEDS ORDERED: Warfarin 2.5 MG Tab PO ONE (21:00)
[2023-11-06 04:05] LABS: HEMATOCRIT 38.1 % (34.3-46.0); MEAN CORPUSCULAR HEMOGLOBIN 27.2 pg (31.6-35.5); MEAN CORPUSCULAR HGB CONC 31.5 g/dL (31.6-35.5); MEAN CORPUSCULAR VOLUME 86.4 fL (81.4-99.0); RED BLOOD CELL COUNT 4.41 M/uL (3.77-5.24); WHITE BLOOD CELL COUNT,WBC 7.3 K/uL (3.2-11.0)
[2023-11-06 04:28] LABS: INR 1.3; PROTHROMBIN TIME 13.3 sec (9.2-10.6)
[2023-11-06] MEDS: Albuterol 0.083% 2.5 MG/3 ML Neb Soln NEB SCH ×4 (06:55→20:23)
[2023-11-06] MEDS: predniSONE 20 MG Tab PO SCH (08:38)
[2023-11-06] MEDS: Furosemide 40 MG Tab PO SCH ×2 (08:38→15:25)
[2023-11-06] MEDS: Cholecalciferol (Vitamin D3) 25 MCG Tab PO SCH (08:38)
[2023-11-06] MEDS: atorvaSTATin 20 MG Tab PO SCH (08:39)
[2023-11-06] MEDS: Ezetimibe 10 MG Tab PO SCH (08:39)
[2023-11-06] MEDS: Lisinopril 10 MG Tab PO SCH (08:39)
[2023-11-06] MEDS: Metoprolol Succinate 50 MG Tab.ER PO SCH ×2 (08:39→20:24)
[2023-11-06] MEDS: Sennosides 8.6 MG Tab PO SCH (08:39)
[2023-11-06] MEDS: Aspirin 81 MG Tab.EC PO SCH (08:39)
[2023-11-06] MEDS: Warfarin 2.5 MG Tab PO SCH (20:24)
[2023-11-06] MEDS: Pantoprazole 40 MG Tab.CR PO SCH (20:24)
[2023-11-06] MEDS: Amiodarone 200 MG Tab PO SCH (20:24)
[2023-11-06] MEDS ORDERED: Warfarin 5 MG Tab PO SCH (21:00)
[2023-11-07] MEDS: Albuterol 0.083% 2.5 MG/3 ML Neb Soln NEB SCH ×4 (07:22→21:38)
[2023-11-07] MEDS: predniSONE 20 MG Tab PO SCH (07:45)
[2023-11-07] MEDS: Furosemide 40 MG Tab PO SCH ×2 (07:45→14:10)
[2023-11-07] MEDS: Cholecalciferol (Vitamin D3) 25 MCG Tab PO SCH (08:11)
[2023-11-07] MEDS: Sennosides 8.6 MG Tab PO SCH (08:11)
[2023-11-07] MEDS: atorvaSTATin 20 MG Tab PO SCH (08:11)
[2023-11-07] MEDS: Aspirin 81 MG Tab.EC PO SCH (08:11)
[2023-11-07] MEDS: Metoprolol Succinate 50 MG Tab.ER PO SCH ×2 (08:12→21:38)
[2023-11-07] MEDS: Ezetimibe 10 MG Tab PO SCH (08:12)
[2023-11-07] MEDS: Lisinopril 10 MG Tab PO SCH (08:13)
[2023-11-07] MEDS: Pantoprazole 40 MG Tab.CR PO SCH (21:33)
[2023-11-07] MEDS: Warfarin 2.5 MG Tab PO SCH (21:34)
[2023-11-07] MEDS: Amiodarone 200 MG Tab PO SCH (21:34)
[2023-11-08 06:30] LABS: INR 2.1; PROTHROMBIN TIME 20.8 sec (9.2-10.6)
[2023-11-08] MEDS: Albuterol 0.083% 2.5 MG/3 ML Neb Soln NEB SCH ×4 (07:28→21:02)
[2023-11-08] MEDS: Ezetimibe 10 MG Tab PO SCH (08:27)
[2023-11-08] MEDS: Cholecalciferol (Vitamin D3) 25 MCG Tab PO SCH (08:27)
[2023-11-08] MEDS: Furosemide 40 MG Tab PO SCH ×2 (08:27→13:51)
[2023-11-08] MEDS: predniSONE 20 MG Tab PO SCH (08:27)
[2023-11-08] MEDS: atorvaSTATin 20 MG Tab PO SCH (08:28)
[2023-11-08] MEDS: Sennosides 8.6 MG Tab PO SCH (08:28)
[2023-11-08] MEDS: Aspirin 81 MG Tab.EC PO SCH (08:28)
[2023-11-08] MEDS: Metoprolol Succinate 50 MG Tab.ER PO SCH ×2 (08:29→21:01)
[2023-11-08] MEDS: Lisinopril 10 MG Tab PO SCH (08:30)
[2023-11-08] MEDS ORDERED: Warfarin 5 MG Tab PO SCH (21:00)
[2023-11-08] MEDS ORDERED: Warfarin 2.5 MG Tab PO SCH (21:00)
[2023-11-08] MEDS: Amiodarone 200 MG Tab PO SCH (21:01)
[2023-11-08] MEDS: Pantoprazole 40 MG Tab.CR PO SCH (21:01)
[2023-11-09 05:28] LABS: INR 2.6; PROTHROMBIN TIME 24.5 sec (9.2-10.6)
[2023-11-09] MEDS: Albuterol 0.083% 2.5 MG/3 ML Neb Soln NEB SCH ×2 (07:18→10:32)
[2023-11-09] MEDS: predniSONE 20 MG Tab PO SCH (07:58)
[2023-11-09] MEDS: Furosemide 40 MG Tab PO SCH (07:58)
[2023-11-09] MEDS: Aspirin 81 MG Tab.EC PO SCH (08:00)
[2023-11-09] MEDS: Lisinopril 10 MG Tab PO SCH (08:00)
[2023-11-09] MEDS: atorvaSTATin 20 MG Tab PO SCH (08:00)
[2023-11-09] MEDS: Ezetimibe 10 MG Tab PO SCH (08:00)
[2023-11-09] MEDS: Metoprolol Succinate 50 MG Tab.ER PO SCH (08:00)
[2023-11-09] MEDS: Sennosides 8.6 MG Tab PO SCH (08:01)
[2023-11-09] MEDS: Cholecalciferol (Vitamin D3) 25 MCG Tab PO SCH (08:01)
[2023-11-09] MEDS ORDERED: Albuterol 6.7 GM Inhaler INH PRN (11:19)
[2023-11-09 11:27] VITALS: BP 148/63; PULSE 62
== END 2023-11-09 12:26 | disposition home or self-care (01) | DRG 189 ==
LOC: JP.ED 06:57 → JP.MS 12:54 → JP.2SS 13:36
PROVIDERS: ADMIT Internal Medicine; ATTEND Internal Medicine
DX: J96.01 Acute respiratory failure with hypoxia (principal); I10 Essential (primary) hypertension; J21.0 Acute bronchiolitis due to respiratory syncytial virus; I38 Endocarditis, valve unspecified; I48.0 Paroxysmal atrial fibrillation; E78.00 Pure hypercholesterolemia, unspecified; Z90.49 Acquired absence of other specified parts of digestive tract; Z20.822 Contact with and (suspected) exposure to COVID-19; Z99.81 Dependence on supplemental oxygen; Z79.82 Long term (current) use of aspirin; Z79.01 Long term (current) use of anticoagulants; Z98.51 Tubal ligation status; Z95.2 Presence of prosthetic heart valve; Z79.899 Other long term (current) drug therapy; Z11.52 Encounter for screening for COVID-19
CPT/HCPCS: 0241U; 36415; 71045; 80048; 80053; 81001; 83880; 85025; 85027; 85610; 93005; 93010; 94640; 99222; 99232; 99238; 99284; 99285; A9270-GY; J7512